=== PATIENT | female | born 1990 | race African-American/Black ===

== ENCOUNTER 2016-10-27 16:38 | Emergency (ER) | payer BC ==
[~2016-10-27 16:38] MED LIST: BACTRIM DS TABL1 TA2 PO; FLOMAX0.4 M1 PO; NORCO 5/325 TAB1 TAB; NORCO 5/325 TAB1 TAB PO
== END 2016-10-27 16:42 | disposition home or self-care (01) ==
LOC: CED 16:38
DX: K64.4 Residual hemorrhoidal skin tags (principal); F17.200 Nicotine dependence, unspecified, uncomplicated
CPT/HCPCS: 99283